=== PATIENT | male | born 1950 | race Caucasian/White ===

== ENCOUNTER 2024-10-11 08:49 | Observation (INO) | payer MEDICARE, OTHER ==
[~2024-10-11] VITALS: Ht 167.6 cm; Wt 78.5 kg
[2024-10-11] VITALS (9 sets, daily range): BP systolic 155–163; BP diastolic 60–70; PULSE 60–74; RESP 16–20; TEMP 97.9–98.6; O2SAT 96–100
[2024-10-11 09:21] LABS: BASOPHILS # (AUTO) 0.1 (0.0-0.1); BASOPHILS % 0.9 % (0.0-1.0); EOSINOPHILS # (AUTO) 0.2 (0.0-0.4); EOSINOPHILS % 3.9 % (0.0-6.0); HEMATOCRIT 26.7 % (38.2-49.6); HEMOGLOBIN 8.4 g/dL (14.0-18.0); LYMPHOCYTES # (AUTO) 1.2 (1.0-3.2); LYMPHOCYTES % 21.2 % (18.0-39.1); MEAN CORPUSCULAR HEMOGLOBIN 28.6 pg (28-32); MEAN CORPUSCULAR HGB CONC 31.5 g/dL (31-35); MEAN CORPUSCULAR VOLUME 90.8 fL (81-99); MONOCYTES # (AUTO) 0.4 (0.2-0.8); MONOCYTES % 7.2 % (4.4-11.3); NEUTROPHILS # (AUTO) 3.8 (2.1-6.9); NEUTROPHILS % 66.6 % (38.7-80.0); PLATELET COUNT 148 x10e3/uL (140-360); RED BLOOD COUNT 2.94 x10e6/uL (4.3-5.7); RED CELL DISTRIBUTION WIDTH 14.6 % (11.7-14.4)
[2024-10-11 09:36] LABS: ALBUMIN 3.5 g/dL (3.5-5.0); ANION GAP 16.8 mmol/L (8-16); BILIRUBIN,TOTAL 0.6 mg/dL (0.2-1.2); CALCIUM 8.9 mg/dL (8.4-10.2); CREATININE, SERUM 5.29 mg/dL (0.72-1.25); POTASSIUM 3.8 mmol/L (3.5-5.1); TOTAL PROTEIN 7.1 g/dL (6.5-8.1)
[2024-10-11] MEDS: ASPIRIN 81 MG CHEW TAB PO ONE ×2 (09:38→14:42)
[2024-10-11 09:42] LABS: TROPONIN I 0.025 ng/mL (0-0.300)
[2024-10-11] MEDS ORDERED: HYDRALAZINE HCL50 MG PO (18:17)
[2024-10-11] MEDS ORDERED: TERAZOSIN HCL5 MG PO (18:18)
[2024-10-11] MEDS ORDERED: SODIUM BICARBO650 MG PO (18:20)
[2024-10-11] MEDS ORDERED: BRILINTA90 MG (18:21)
[2024-10-11] MEDS ORDERED: COREG6.25 MG PO (18:24)
[2024-10-11] MEDS ORDERED: NIFEDIPINE ER90 M1 (18:24)
[2024-10-11] MEDS ORDERED: ATORVASTATIN CA20 MG PO (18:25)
[2024-10-12 04:00] VITALS: BP 144/67; PULSE 66; RESP 18; TEMP 98.4; O2SAT 100
[2024-10-12 06:15] VITALS: PULSE 76; RESP 15; O2SAT 98
[2024-10-12 08:00] VITALS: BP 160/66; PULSE 64; RESP 18; TEMP 98.7; O2SAT 100
[2024-10-12 08:32] LABS: BASOPHILS # (AUTO) 0.1 (0.0-0.1); EOSINOPHILS # (AUTO) 0.2 (0.0-0.4); EOSINOPHILS % 3.7 % (0.0-6.0); HEMATOCRIT 24.5 % (38.2-49.6); LYMPHOCYTES # (AUTO) 1.2 (1.0-3.2); LYMPHOCYTES % 22.5 % (18.0-39.1); MEAN CORPUSCULAR HEMOGLOBIN 28.6 pg (28-32); MEAN CORPUSCULAR HGB CONC 32.7 g/dL (31-35); MEAN CORPUSCULAR VOLUME 87.5 fL (81-99); MONOCYTES # (AUTO) 0.3 (0.2-0.8); MONOCYTES % 6.6 % (4.4-11.3); NEUTROPHILS # (AUTO) 3.4 (2.1-6.9); NEUTROPHILS % 65.8 % (38.7-80.0); PLATELET COUNT 146 x10e3/uL (140-360); RED CELL DISTRIBUTION WIDTH 14.9 % (11.7-14.4); WHITE BLOOD COUNT 5.16 x10e3/uL (4.8-10.8)
[2024-10-12 08:51] LABS: ANION GAP 14.6 mmol/L (8-16); CALCIUM 8.9 mg/dL (8.4-10.2); CREATININE, SERUM 5.06 mg/dL (0.72-1.25); POTASSIUM 3.6 mmol/L (3.5-5.1)
[2024-10-12 09:21] LABS: TROPONIN I 0.022 ng/mL (0-0.300)
[2024-10-12 10:08] VITALS: BP 160/66; PULSE 64; RESP 18; TEMP 98.7; O2SAT 100
[2024-10-12] MEDS ORDERED: ACETAMINOPHEN 325 MG TAB PO PRN (11:15)
[2024-10-12] MEDS ORDERED: MELATONIN 3 MG TAB PO PRN (11:15)
[2024-10-12] MEDS ORDERED: SIMETHICONE 80 MG CHEW PO PRN (11:15)
[2024-10-12] MEDS ORDERED: ONDANSETRON HCL INJ 2MG/ML 2ML 2 MG/ML VIAL IV PRN (11:15)
[2024-10-12] MEDS ORDERED: FAMOTIDINE 20 MG TAB PO SCH (11:15)
[2024-10-12] MEDS ORDERED: ALBUTEROL/IPRATROPIUM 3 ML NEB NEB PRN (11:15)
[2024-10-12] MEDS ORDERED: METOPROLOL TARTRATE INJ 1 MG/ML VIAL IV PRN (11:15)
[2024-10-12] MEDS ORDERED: DOCUSATE SODIUM 100 MG CAP PO PRN (11:15)
[2024-10-12] MEDS: ASPIRIN 81 MG ENTERIC COATED PO SCH (11:35)
[2024-10-12] MEDS: SODIUM CHLORIDE 0.45% 1,000 ML IV SCH (11:43)
[2024-10-12 12:00] VITALS: BP 141/63; PULSE 65; RESP 21; TEMP 98.2; O2SAT 100
[2024-10-12] MEDS ORDERED: SENOKOT8.6 MG PO (13:01)
[2024-10-12] MEDS ORDERED: FAMOTIDINE20 MG PO (13:01)
[2024-10-12] MEDS ORDERED: ASPIRIN EC81 MG PO (13:01)
[2024-10-13] MEDS ORDERED: SENNOSIDES 8.6 MG TAB PO SCH (09:00)
[2024-10-13] MEDS ORDERED: FAMOTIDINE 20 MG TAB PO SCH (09:00)
== END 2024-10-12 13:37 | disposition home or self-care (01) ==
LOC: ER 08:56 → ERHOLD 11:38 → MED/SURG2 14:22
PROVIDERS: ADMIT Internal Medicine; ATTEND Internal Medicine
DX: R07.89 Other chest pain (principal); Z79.82 Long term (current) use of aspirin; K85.90 Acute pancreatitis without necrosis or infection, unspecified; E87.20 Acidosis, unspecified; R74.01 Elevation of levels of liver transaminase levels; I13.11 Hypertensive heart and chronic kidney disease without heart failure, with stage 5 chronic kidney disease, or end stage renal disease; N18.5 Chronic kidney disease, stage 5; Z95.5 Presence of coronary angioplasty implant and graft; Z95.1 Presence of aortocoronary bypass graft; I25.2 Old myocardial infarction; Z79.899 Other long term (current) drug therapy
CPT/HCPCS: 36415 ×2; 71046; 80048; 80053; 82550; 83690 ×2; 84484 ×2; 85025 ×2; 94799 ×2; 99284; G0378 ×2

== ENCOUNTER 2024-10-21 10:12 | Inpatient (IN) | payer MEDICARE, OTHER ==
[~2024-10-21] VITALS: Ht 167.6 cm; Wt 78.5 kg
[~2024-10-21 10:12] MED LIST: ASPIRIN EC81 MG PO; ATORVASTATIN CA20 MG PO; BRILINTA90 MG; COREG6.25 MG PO; FAMOTIDINE20 MG PO; HYDRALAZINE HCL50 MG PO; NIFEDIPINE ER90 M1; SENOKOT8.6 MG PO; SODIUM BICARBO650 MG PO; TERAZOSIN HCL5 MG PO
[2024-10-21] MEDS: ONDANSETRON HCL INJ 2MG/ML 2ML 2 MG/ML VIAL IV STA (11:06)
[2024-10-21] MEDS: SODIUM CHLORIDE 0.9% 500ML 500 ML IV ONE (11:06)
[2024-10-21 11:35] LABS: BASOPHILS # (AUTO) 0.1 (0.0-0.1); BASOPHILS % 0.9 % (0.0-1.0); EOSINOPHILS # (AUTO) 0.2 (0.0-0.4); EOSINOPHILS % 4.1 % (0.0-6.0); HEMATOCRIT 25.7 % (38.2-49.6); LYMPHOCYTES # (AUTO) 1.2 (1.0-3.2); LYMPHOCYTES % 20.3 % (18.0-39.1); MEAN CORPUSCULAR HEMOGLOBIN 28.5 pg (28-32); MEAN CORPUSCULAR HGB CONC 31.1 g/dL (31-35); MEAN CORPUSCULAR VOLUME 91.5 fL (81-99); MONOCYTES # (AUTO) 0.4 (0.2-0.8); NEUTROPHILS # (AUTO) 3.9 (2.1-6.9); NEUTROPHILS % 67.2 % (38.7-80.0); PLATELET COUNT 175 x10e3/uL (140-360); RED BLOOD COUNT 2.81 x10e6/uL (4.3-5.7); RED CELL DISTRIBUTION WIDTH 14.5 % (11.7-14.4); WHITE BLOOD COUNT 5.82 x10e3/uL (4.8-10.8)
[2024-10-21 11:42] LABS: INR 0.98; PROTHROMBIN TIME 13.6 seconds (11.9-14.5)
[2024-10-21 11:43] LABS: PARTIAL THROMBOPLASTIN TIME 33.7 seconds (23.8-35.5)
[2024-10-21 11:51] LABS: CORONAVIRUS COVID-19 AG NEGATIVE (NEGATIVE); INFLUENZA A AG NEGATIVE (NEGATIVE); INFLUENZA B AG NEGATIVE (NEGATIVE)
[2024-10-21 11:54] LABS: ALBUMIN 3.6 g/dL (3.5-5.0); ANION GAP 18.7 mmol/L (8-16); BILIRUBIN,TOTAL 0.5 mg/dL (0.2-1.2); CALCIUM 9.1 mg/dL (8.4-10.2); CREATININE, SERUM 5.78 mg/dL (0.72-1.25); MAGNESIUM 2.3 MG/DL (1.3-2.1); POTASSIUM 3.7 mmol/L (3.5-5.1); TOTAL PROTEIN 7.1 g/dL (6.5-8.1)
[2024-10-21 11:59] LABS: TROPONIN I 0.051 ng/mL (0-0.300)
[2024-10-21] MEDS ORDERED: ONDANSETRON HCL INJ 2MG/ML 2ML 2 MG/ML VIAL IV PRN (12:45)
[2024-10-21] MEDS ORDERED: POLYETHYLENE GLYCOL 3350 17 GM PACK PO PRN (13:15)
[2024-10-21 13:50] VITALS: PULSE 73; RESP 16; TEMP 98.5
[2024-10-21] MEDS ORDERED: LIDOCAINE HCL 1% 30ML-PF VIAL ONE (14:07)
[2024-10-21] MEDS ORDERED: LIDOCAINE 2% /EPINEPHRINE 20 ML SDV INJ ONE (14:07)
[2024-10-21] MEDS ORDERED: SODIUM CHLORIDE 0.9% 500ML 500 ML ONE (14:07)
[2024-10-21 14:15] VITALS: BP 159/73; PULSE 71; RESP 16; TEMP 98.5; O2SAT 100
[2024-10-21 14:49] LABS: % IRON SATURATION 33 % (15-50); IRON 74 ug/dL (65-175); TOTAL IRON BINDING CAPACITY 224 ug/dL (261-478); TRANSFERRIN 160 mg/dL (174-364)
[2024-10-21] MEDS ORDERED: HEPARIN SOD (PORCINE) 1000 UNIT/ML SDV ONE (14:52)
[2024-10-21] MEDS ORDERED: MIDAZOLAM HCL 2 MG/2 ML VIAL ONE (14:52)
[2024-10-21] MEDS ORDERED: FENTANYL CITRATE/PF 100MCG/2 ML INJ ONE (14:53)
[2024-10-21] MEDS ORDERED: SODIUM CHLORIDE 0.9% 250ML 250 ML ONE (14:53)
[2024-10-21 15:45] VITALS: BP 168/67; PULSE 67; RESP 17; TEMP 98.2; O2SAT 100
[2024-10-21] MEDS ORDERED: DOCUSATE SODIUM 100 MG CAP PO SCH ×2 (17:00→21:00)
[2024-10-21] MEDS ORDERED: MANNITOL 25% 12.5GM/50 ML VIAL IV PRN (17:00)
[2024-10-21] MEDS ORDERED: HEPARIN SOD (PORCINE) 1000 UNIT/ML SDV IV PRN (17:00)
[2024-10-21] MEDS ORDERED: SODIUM CHLORIDE 0.9% 1000ML 2,000 ML IV PRN (17:00)
[2024-10-21 19:04] LABS: TROPONIN I 0.048 ng/mL (0-0.300)
[2024-10-21 19:15] VITALS: BP 161/79; PULSE 61; RESP 18; TEMP 98.1; O2SAT 100
[2024-10-21] MEDS: TAMSULOSIN HCL 0.4 MG CAP PO SCH (20:43)
[2024-10-21] MEDS: TERAZOSIN HCL 1 MG CAP PO SCH (20:43)
[2024-10-21 20:45] VITALS: BP 168/87; PULSE 61; RESP 18; TEMP 98.1; O2SAT 100
[2024-10-21 23:11] VITALS: BP 198/78; PULSE 62; RESP 18; TEMP 98.2; O2SAT 100
[2024-10-21] MEDS: HYDRALAZINE HCL 20 MG/ML VIAL IV PRN (23:49)
[2024-10-22 03:16] VITALS: BP 176/78; PULSE 63; RESP 18; TEMP 98.7; O2SAT 100
[2024-10-22 06:09] LABS: BASOPHILS # (AUTO) 0.1 (0.0-0.1); EOSINOPHILS # (AUTO) 0.2 (0.0-0.4); EOSINOPHILS % 3.9 % (0.0-6.0); HEMATOCRIT 23.1 % (38.2-49.6); LYMPHOCYTES # (AUTO) 1.2 (1.0-3.2); LYMPHOCYTES % 23.3 % (18.0-39.1); MEAN CORPUSCULAR HEMOGLOBIN 28.6 pg (28-32); MEAN CORPUSCULAR HGB CONC 31.2 g/dL (31-35); MEAN CORPUSCULAR VOLUME 91.7 fL (81-99); MONOCYTES # (AUTO) 0.5 (0.2-0.8); MONOCYTES % 9.1 % (4.4-11.3); NEUTROPHILS # (AUTO) 3.2 (2.1-6.9); NEUTROPHILS % 62.5 % (38.7-80.0); PLATELET COUNT 171 x10e3/uL (140-360); RED BLOOD COUNT 2.52 x10e6/uL (4.3-5.7); RED CELL DISTRIBUTION WIDTH 14.5 % (11.7-14.4); WHITE BLOOD COUNT 5.07 x10e3/uL (4.8-10.8)
[2024-10-22 06:16] LABS: HEMOGLOBIN 7.2 g/dL (14.0-18.0)
[2024-10-22 06:28] LABS: ALBUMIN 3.1 g/dL (3.5-5.0); ALBUMIN/GLOBULIN RATIO 0.9 (0.8-2.0); ANION GAP 14.6 mmol/L (8-16); BILIRUBIN,TOTAL 0.4 mg/dL (0.2-1.2); CALCIUM 8.6 mg/dL (8.4-10.2); CREATININE, SERUM 4.45 mg/dL (0.72-1.25); POTASSIUM 3.6 mmol/L (3.5-5.1); TOTAL PROTEIN 6.4 g/dL (6.5-8.1)
[2024-10-22 06:40] LABS: TROPONIN I 0.053 ng/mL (0-0.300)
[2024-10-22 07:03] LABS: CHOL/HDL RATIO 2.2 (3.9-4.7); FOLATE 7.8 ng/mL (7.0-15.4)
[2024-10-22 07:25] LABS: FREE T4 (FREE THYROXINE) 1.09 ng/dL (0.8-1.8); THYROID STIMULATING HORMONE 1.747 uIU/mL (0.350-4.940)
[2024-10-22 08:04] VITALS: BP 171/69; PULSE 66; RESP 18; TEMP 98.2; O2SAT 100
[2024-10-22 08:33] LABS: HEPATITIS B SURFACE AB QUANT <3.5
[2024-10-22 08:34] LABS: HEPATITIS B CORE AB TOTAL Negative; HEPATITIS B CORE IGM (P) Negative; HEPATITIS B SURFACE AG (P) Negative
[2024-10-22] MEDS: IRON SUCROSE 100 MG in SODIUM CHLORIDE 0.9% 100 ML IV SCH (09:06)
[2024-10-22 12:00] VITALS: BP 169/68; PULSE 64; RESP 18; TEMP 98.3; O2SAT 100
[2024-10-22] MEDS: CARVEDILOL 3.125 MG TAB PO SCH (13:51)
[2024-10-22 16:00] VITALS: BP 181/86; PULSE 56; RESP 18; TEMP 98.8; O2SAT 100
[2024-10-22] MEDS: HYDRALAZINE HCL 25 MG TAB PO SCH (16:19)
[2024-10-22] MEDS: NIFEDIPINE CR 30 MG TAB PO ONE (19:14)
[2024-10-22] MEDS: SODIUM CHLORIDE 0.9% 250ML 250 ML IV ONE (19:36)
[2024-10-22 20:39] VITALS: BP 187/73; PULSE 69; RESP 18; TEMP 98.7; O2SAT 100
[2024-10-22 20:45] VITALS: BP 187/73; PULSE 69; RESP 18; TEMP 98.7; O2SAT 100
[2024-10-22] MEDS: FOLIC ACID 1 MG TAB PO SCH (20:50)
[2024-10-22] MEDS: FOLIC ACID/CYANOCOB/PYRIDOXINE TAB PO SCH (20:50)
[2024-10-22] MEDS: ATORVASTATIN 20 MG TAB PO SCH (20:50)
[2024-10-23 04:00] VITALS: BP 170/64; PULSE 59; RESP 20; TEMP 98.2; O2SAT 100
[2024-10-23 06:21] LABS: BASOPHILS # (AUTO) 0.1 (0.0-0.1); BASOPHILS % 1.1 % (0.0-1.0); EOSINOPHILS # (AUTO) 0.2 (0.0-0.4); EOSINOPHILS % 3.9 % (0.0-6.0); HEMATOCRIT 25.1 % (38.2-49.6); HEMOGLOBIN 7.7 g/dL (14.0-18.0); LYMPHOCYTES # (AUTO) 1.4 (1.0-3.2); LYMPHOCYTES % 25.2 % (18.0-39.1); MEAN CORPUSCULAR HEMOGLOBIN 27.9 pg (28-32); MEAN CORPUSCULAR HGB CONC 30.7 g/dL (31-35); MEAN CORPUSCULAR VOLUME 90.9 fL (81-99); MONOCYTES # (AUTO) 0.6 (0.2-0.8); MONOCYTES % 10.3 % (4.4-11.3); NEUTROPHILS # (AUTO) 3.3 (2.1-6.9); NEUTROPHILS % 59.3 % (38.7-80.0); PLATELET COUNT 162 x10e3/uL (140-360); RED BLOOD COUNT 2.76 x10e6/uL (4.3-5.7); RED CELL DISTRIBUTION WIDTH 15.5 % (11.7-14.4); WHITE BLOOD COUNT 5.63 x10e3/uL (4.8-10.8)
[2024-10-23 06:54] LABS: ALBUMIN 2.9 g/dL (3.5-5.0); ALBUMIN/GLOBULIN RATIO 0.9 (0.8-2.0); ANION GAP 12.6 mmol/L (8-16); BILIRUBIN,TOTAL 0.4 mg/dL (0.2-1.2); CALCIUM 8.5 mg/dL (8.4-10.2); CREATININE, SERUM 3.62 mg/dL (0.72-1.25); POTASSIUM 3.6 mmol/L (3.5-5.1); TOTAL PROTEIN 6.2 g/dL (6.5-8.1)
[2024-10-23 08:19] VITALS: BP 157/66; PULSE 61; RESP 18; TEMP 98.3; O2SAT 99
[2024-10-23] MEDS: SENNOSIDES 8.6 MG TAB PO SCH (09:24)
[2024-10-23 12:04] VITALS: BP 136/64; PULSE 58; RESP 18; TEMP 98.6; O2SAT 99
[2024-10-23] MEDS: SODIUM CHLORIDE 0.9% 250ML 250 ML ONE (12:31)
[2024-10-23 12:42] VITALS: BP 136/64; PULSE 58; RESP 18; TEMP 98.6; O2SAT 99
[2024-10-23 16:02] VITALS: BP 166/66; PULSE 61; RESP 18; TEMP 98.2; O2SAT 100
[2024-10-23 20:00] VITALS: BP 166/79; PULSE 66; RESP 18; TEMP 99.1; O2SAT 100
[2024-10-24] VITALS (8 sets, daily range): BP systolic 119–188; BP diastolic 59–81; PULSE 53–72; RESP 16–20; TEMP 98.1–98.8; O2SAT 99–100
[2024-10-24] MEDS: ACETAMINOPHEN 325 MG TAB PO PRN (21:40)
[2024-10-25] VITALS (9 sets, daily range): BP systolic 151–193; BP diastolic 66–77; PULSE 55–67; RESP 16–18; TEMP 98.3–99.8; O2SAT 97–100
[2024-10-25] MEDS ORDERED: TRAMADOL HCL 50 MG TAB PO PRN (15:15)
[2024-10-26] VITALS (8 sets, daily range): BP systolic 130–183; BP diastolic 68–87; PULSE 56–68; RESP 16–18; TEMP 98.4–98.8; O2SAT 99–100
[2024-10-26 08:17] LABS: BASOPHILS # (AUTO) 0.1 (0.0-0.1); EOSINOPHILS # (AUTO) 0.3 (0.0-0.4); EOSINOPHILS % 3.7 % (0.0-6.0); HEMOGLOBIN 9.1 g/dL (14.0-18.0); LYMPHOCYTES # (AUTO) 1.5 (1.0-3.2); LYMPHOCYTES % 20.7 % (18.0-39.1); MEAN CORPUSCULAR HGB CONC 31.4 g/dL (31-35); MEAN CORPUSCULAR VOLUME 89.2 fL (81-99); MONOCYTES # (AUTO) 0.7 (0.2-0.8); MONOCYTES % 10.3 % (4.4-11.3); NEUTROPHILS # (AUTO) 4.5 (2.1-6.9); NEUTROPHILS % 64.2 % (38.7-80.0); PLATELET COUNT 156 x10e3/uL (140-360); RED BLOOD COUNT 3.25 x10e6/uL (4.3-5.7); WHITE BLOOD COUNT 6.99 x10e3/uL (4.8-10.8)
[2024-10-26 08:54] LABS: ANION GAP 15.4 mmol/L (8-16); CALCIUM 8.8 mg/dL (8.4-10.2); CREATININE, SERUM 4.65 mg/dL (0.72-1.25); URIC ACID 4.8 mg/dL (4.8-8.0)
[2024-10-26 08:55] LABS: POTASSIUM 3.4 mmol/L (3.5-5.1)
[2024-10-26] MEDS: POTASSIUM CHLORIDE 10MEQ EA PO SCH (11:37)
[2024-10-27] VITALS (10 sets, daily range): BP systolic 149–176; BP diastolic 64–87; PULSE 51–63; RESP 16–18; TEMP 98–98.8; O2SAT 100
[2024-10-27 08:22] LABS: ANION GAP 16.6 mmol/L (8-16); CALCIUM 8.7 mg/dL (8.4-10.2); CREATININE, SERUM 5.21 mg/dL (0.72-1.25); POTASSIUM 3.6 mmol/L (3.5-5.1)
[2024-10-27] MEDS: METHYLPREDNISOLONE SOD SUCC 125 MG/2ML VIAL IV ONE (12:22)
[2024-10-27] MEDS ORDERED: PROPOFOL IV EMULSION 10 MG/ML 20 ML VIAL ONE (14:57)
[2024-10-27] MEDS ORDERED: ROCURONIUM BROMIDE 1 ML IV ONE (14:57)
[2024-10-27] MEDS ORDERED: ETOMIDATE 40 MG/ 20ML VIAL IV ONE (14:58)
[2024-10-27] MEDS ORDERED: FENTANYL CITRATE/PF 100MCG/2 ML INJ ONE (14:58)
[2024-10-27] MEDS ORDERED: LIDOCAINE HCL 2% LOCAL INJ 5 ML SDV VIAL INJ ONE (15:57)
[2024-10-27] MEDS ORDERED: ONDANSETRON HCL INJ 2MG/ML 2ML 2 MG/ML VIAL ONE (16:06)
[2024-10-27] MEDS ORDERED: ACETAMINOPHEN 1000 MG/100 ML 100 ML IV ONE (16:06)
[2024-10-27] MEDS ORDERED: DEXAMETHASONE SOD PHOS INJ 4 MG/ML SDV ONE (16:06)
[2024-10-27] MEDS ORDERED: GLYCOPYRROLATE INJ 0.2 MG/ML VIAL ONE (16:25)
[2024-10-27] MEDS ORDERED: Morphine 2mg Syringe 2 MG/ML SYR IV PRN (16:45)
[2024-10-27] MEDS: FENTANYL CITRATE/PF 100MCG/2 ML INJ ONE (16:52)
[2024-10-27] MEDS: ONDANSETRON HCL INJ 2MG/ML 2ML 2 MG/ML VIAL ONE (19:54)
[2024-10-28] VITALS (7 sets, daily range): BP systolic 154–190; BP diastolic 60–75; PULSE 50–54; RESP 17–20; TEMP 97.7–98.4; O2SAT 96–100
[2024-10-28] MEDS ORDERED: ACETAMINOPHEN325 M1 PO (13:08)
[2024-10-28] MEDS ORDERED: MIRALAX17 GM PO (13:08)
[2024-10-28] MEDS ORDERED: HYDRALAZINE HCL25 MG PO (13:08)
[2024-10-28] MEDS ORDERED: FOLIC ACID0.8 MG PO (13:08)
[2024-10-28] MEDS ORDERED: HYTRIN1 M1 PO (13:08)
[2024-10-28] MEDS ORDERED: ULTRAM 50MG50 MG PO (13:08)
[2024-10-28] MEDS ORDERED: RENA-VITE TABL0.8 MG PO (13:08)
[2024-10-28] MEDS ORDERED: FLOMAX0.4 MG PO (13:08)
[2024-10-28] MEDS ORDERED: HEPARIN SOD (PORCINE) 1000 UNIT/ML SDV IV PRN (13:15)
== END 2024-10-28 19:00 | disposition home or self-care (01) | DRG 674 ==
LOC: ER 10:25 → ERHOLD 12:43 → MED/SURG3 14:24
PROVIDERS: ADMIT Internal Medicine; ATTEND Internal Medicine
PROC: 0JH63XZ Insertion of Tunneled Vascular Access Device into Chest Subcutaneous Tissue and Fascia, Percutaneous Approach (ICD-10-PCS; principal; 2024-10-21)
PROC: 02HV33Z Insertion of Infusion Device into Superior Vena Cava, Percutaneous Approach (ICD-10-PCS; 2024-10-21)
PROC: 5A1D70Z Performance of Urinary Filtration, Intermittent, Less than 6 Hours Per Day (ICD-10-PCS; 2024-10-21)
PROC: 30233N1 Transfusion of Nonautologous Red Blood Cells into Peripheral Vein, Percutaneous Approach (ICD-10-PCS; 2024-10-22)
PROC: 0WHG33Z Insertion of Infusion Device into Peritoneal Cavity, Percutaneous Approach (ICD-10-PCS; 2024-10-27)
DX: I13.11 Hypertensive heart and chronic kidney disease without heart failure, with stage 5 chronic kidney disease, or end stage renal disease (principal); E44.0 Moderate protein-calorie malnutrition; E87.20 Acidosis, unspecified; E87.79 Other fluid overload; N18.5 Chronic kidney disease, stage 5; I25.10 Atherosclerotic heart disease of native coronary artery without angina pectoris; D63.1 Anemia in chronic kidney disease; E78.5 Hyperlipidemia, unspecified; K59.00 Constipation, unspecified; N40.0 Benign prostatic hyperplasia without lower urinary tract symptoms; R63.4 Abnormal weight loss; R53.81 Other malaise; R11.2 Nausea with vomiting, unspecified; M79.675 Pain in left toe(s); Z11.52 Encounter for screening for COVID-19; Z68.27 Body mass index [BMI] 27.0-27.9, adult; Z79.02 Long term (current) use of antithrombotics/antiplatelets; Z79.82 Long term (current) use of aspirin; I25.2 Old myocardial infarction; Z95.1 Presence of aortocoronary bypass graft; Z95.5 Presence of coronary angioplasty implant and graft; Z90.49 Acquired absence of other specified parts of digestive tract; F17.210 Nicotine dependence, cigarettes, uncomplicated; Z82.49 Family history of ischemic heart disease and other diseases of the circulatory system
CPT/HCPCS: 36415; 36558; 71045; 74176; 74470; 76937; 77001; 80048; 80053; 80061; 82550; 82607; 82728; 82746; 82948; 83036; 83540; 83735; 84439; 84443; 84466; 84484; 84550; 85025; 85610; 85730; 86704; 86705; 86706; 86850; 86900; 86920; 87340; 93005; 99152; 99284; C1769; C1892; J0360; J0690; J1100; J1644; J1756; J2003; J2004; J2150; J2250; J2405; J2470; J2919; J7030; J7040; J7050; P9016

== ENCOUNTER 2025-05-22 18:44 | Emergency (ER) | payer MEDICARE, OTHER ==
[~2025-05-22] VITALS: Ht 167.6 cm; Wt 78.9 kg
[~2025-05-22 18:44] MED LIST changes: +ACETAMINOPHEN325 M1 PO; +FLOMAX0.4 MG PO; +FOLIC ACID0.8 MG PO; +HYDRALAZINE HCL25 MG PO; +HYTRIN1 M1 PO; +MIRALAX17 GM PO; +RENA-VITE TABL0.8 MG PO; +ULTRAM 50MG50 MG PO
[2025-05-22 19:08] VITALS: PULSE 74; RESP 18; TEMP 99.1
[2025-05-22] MEDS ORDERED: TYLENOL325 MG PO (19:52)
[2025-05-22] MEDS ORDERED: CEFDINIR300 MG PO (19:52)
[2025-05-22 20:45] VITALS: BP 128/91; PULSE 74; RESP 18; TEMP 99; O2SAT 99
[2025-05-27] MEDS ORDERED: AUGMENTIN 500-1 EACH PO (00:16)
== END 2025-05-22 20:45 | disposition home or self-care (01) ==
LOC: FSED 18:48
DX: J02.0 Streptococcal pharyngitis (principal); R05.9 Cough, unspecified; I12.0 Hypertensive chronic kidney disease with stage 5 chronic kidney disease or end stage renal disease; N18.6 End stage renal disease; I25.2 Old myocardial infarction; I25.10 Atherosclerotic heart disease of native coronary artery without angina pectoris; R50.9 Fever, unspecified; D72.829 Elevated white blood cell count, unspecified; Z95.1 Presence of aortocoronary bypass graft; Z99.2 Dependence on renal dialysis; Z11.52 Encounter for screening for COVID-19
CPT/HCPCS: 0223U; 80053; 83518; 85025; 87400; 99283; J0696